=== PATIENT | female | born 1975 | race Caucasian/White ===

== ENCOUNTER 2018-12-18 10:08 | Emergency (ER) | payer OTHER ==
[2018-12-18 10:25] VITALS: BP 144/84
[2018-12-18 10:34] LABS: Influenza A Molecular POSITIVE (Negative)
--- NOTE | 2018-12-18 11:29 | UC ---
FLU HPI - HPI Summary HPI Summary: pT C/O SUDDEN ONSET OF FEVER CHILLS BODY ACHE NASAL CONGESTION SINUS PRESSURE AND PAIN X 1 DAY - History of Current Complaint Chief Complaint: UCRespiratory Stated Complaint: FEVER,MILNER,EAR PAIN,ST Time Seen by Provider: 12/18/18 10:26 Hx Obtained From: Patient Hx Last Menstrual Period: last week ?: No Onset/Duration: Sudden Onset, Still Present Severity Currently: Moderate Severity Initially: Severe Pain Intensity: 10 Pain Scale Used: 0-10 Numeric Associated Signs & Symptoms: Positive: Fever, Myalgia, Cough, Sore Throat, Nasal Congestion, Headache Related Hx: Possible Flu/Infectious Exposure - Risk Factors Influenza Risk Factors: Negative - Allergy/Home Medications Allergies/Adverse Reactions: Allergies Allergy/AdvReac Type Severity Reaction Status Date / Time acetaminophen [From Tylenol] Allergy Rash Verified 12/18/18 10:29 amoxicillin [From Augmentin] Allergy GI Upset Verified 12/18/18 10:29 clavulanic acid Allergy GI Upset Verified 12/18/18 10:29 [From Augmentin] Sulfa (Sulfonamide Allergy Rash And Verified 12/18/18 10:29 Antibiotics) Itching thimerosal Allergy Unknown Verified 12/18/18 10:29 Reaction Details Home Medications: Home Medications Ethynodiol D-Ethinyl Estradiol [Ethynodiol-Eth Estra 1Mg-35Mcg] 1 tab QAM [History Confirmed 12/18/18] Levothyroxine TAB* [Synthroid 75 MCG TAB*] 75 mcg PO DAILY 12/18/18 [History Confirmed 12/18/18] Omeprazole 1 cap DAILY 12/18/18 [History Confirmed 12/18/18] PMH/Surg Hx/FS Hx/Imm Hx Previously Healthy: Yes - Surgical History Surgical History: Yes Surgery Procedure, Year, and Place: ovarian cyst. left thyroid, 2010 - Family History Known Family History: Positive: Cardiac Disease - Social History Occupation: Employed Full-time Lives: With Family Alcohol Use: None Substance Use Type: None Smoking Status (MU): Never Smoked Tobacco Have You Smoked in the Last Year: No - Immunization History Most Recent Influenza Vaccination: fall 2017 Review of Systems All Other Systems Reviewed And Are Negative: Yes Constitutional: Positive: Fever, Chills, Fatigue Skin: Positive: Negative Eyes: Positive: Negative ENT: Positive: Sore Throat, Sinus Congestion, Sinus Pain/Tenderness Respiratory: Positive: Cough Cardiovascular: Positive: Negative Gastrointestinal: Positive: Negative Genitourinary: Positive: Negative Motor: Positive: Negative Neurovascular: Positive: Negative Musculoskeletal: Positive: Myalgia Neurological: Positive: Negative Psychological: Positive: Negative Is Patient Immunocompromised?: No Physical Exam Triage Information Reviewed: Yes Appearance: Ill-Appearing Vital Signs: Initial Vital Signs Temp 100.1 F 12/18/18 10:23 Pulse 120 12/18/18 10:23 Resp 18 12/18/18 10:23 BP 144/84 12/18/18 10:23 Pulse Ox 98 12/18/18 10:23 Vital Signs Reviewed: Yes Eye Exam: Normal ENT: Positive: Nasal congestion Dental Exam: Normal Neck exam: Normal Respiratory Exam: Normal Cardiovascular Exam: Normal Musculoskeletal Exam: Normal Neurological Exam: Normal Psychological Exam: Normal Skin Exam: Normal Flu Course/Dx - Differential Dx/Diagnosis Differential Diagnosis/HQI/PQRI: Influenza, Upper Respiratory Infection Provider Diagnosis: Influenza A Discharge - Sign-Out/Discharge Documenting (check all that apply): Patient Departure All imaging exams completed and their final reports reviewed: No Studies - Discharge Plan Condition: Stable Disposition: HOME Prescriptions: Ondansetron HCl [Zofran] 8 mg PO Q8H PRN #15 tablet PRN Reason: Nausea Oseltamivir Phosphate [Tamiflu] 75 mg PO Q12H #10 capsule Patient Education Materials: Influenza (ED) Referrals: Britt BRISCOE,Chase Kline [Primary Care Provider] - If Needed - Billing Disposition and Condition Condition: STABLE Disposition: Home - Attestation Statements Provider Attestation: I was available for consult. This patient was seen by the LEONOR. The patient was not presented to, seen by, or examined by me. EK
== END 2018-12-18 11:15 | disposition home or self-care (01) ==
LOC: UCCORT 10:08
DX: J10.1 Influenza due to other identified influenza virus with other respiratory manifestations (principal); Z88.8 Allergy status to other drugs, medicaments and biological substances; Z88.0 Allergy status to penicillin; Z88.2 Allergy status to sulfonamides
CPT/HCPCS: 99202; G0463